=== PATIENT | male | born 1945 | race Caucasian/White ===

== ENCOUNTER 2016-11-06 20:44 | Emergency (ER) | payer OTHER ==
[~2016-11-06] VITALS: Ht 172.7 cm; Wt 93.1 kg
[~2016-11-06 20:44] MED LIST: ATORVASTATIN CA40 MG PO; BACTRIM,SEPT1 TABLET PO; CIPRO500 MG PO; CIPROFLOXACIN H10 ML RIGHT EYE; CITALOPRAM HBR40 MG PO; COLACE100 MG PO; DIABETA,MICRONAS5 MG PO; FLEXERIL10 MG PO; GABAPENTIN300 MG PO; GLUCOPHAGE850 MG PO; HYDROCHLOROTHIA25 MG PO; HYDROCHLOROTHIA50 MG PO; IBUPROFEN400 MG PO; KEFLEX500 MG PO; LANTUS 10100 UNITS/ SC; LANTUS 3 M100 UNITS1 SC; LEVEMIR FL100 UNIT/1 SC; LIPITOR20 MG PO; LISINOPRIL10 MG PO; LISINOPRIL40 MG PO; LORTAB 5-325 M1 EACH PO; MEDROL DOSEPAK4 MG PO; METFORMIN HCL500 MG PO; MOBIC15 MG PO; MOBIC7.5 MG PO; MOTRIN800 MG PO; NAPROSYN500 MG PO; NAPROXEN500 MG PO; NEURONTIN300 MG PO; NO HOME MEDS; NORCO 5/3251 TABLET PO; NORVASC10 MG PO; PERCOCET 10/1 TABLET PO; PERCOCET 5/31 TABLET PO; POLYTRIM EYE DR10 ML RIGHT EYE; PREDNISONE10 MG PO; PREDNISONE50 MG PO; PROAIR HFA8.5 GM IH; PROVENTIL HFA6.7 GM IH; SIMVASTATIN10 MG PO; SKELAXIN800 MG PO; TRAMADOL HCL50 MG PO; TYLENOL ARTHRI650 MG PO; VENTOLIN HFA18 GM IH; ZITHROMAX Z-PA250 MG PO; ZOFRAN4 MG PO; ZYPREXA5 MG PO
[2016-11-06 21:12] LABS: POINT-OF-CARE METER ID UU13113778
[2016-11-06 21:21] LABS: HEMATOCRIT 35.5 % (38.0-50.0); MCH 31.8 PG (29.0-34.0); MCHC 35.8 G/DL (30.0-36.0); RBC DIS.WIDTH-SD 42.5 % (39-53); RED BLOOD COUNT 3.99 M/uL (4.00-5.50); WHITE BLOOD COUNT 6.1 K/uL (4.1-10.2)
[2016-11-06] MEDS ORDERED: COLACE CLEAR50 MG PO (21:36)
[2016-11-06] MEDS ORDERED: ATORVASTATIN CA40 MG PO (21:37)
[2016-11-06 21:38] LABS: GLUCOSE 341 mg/dL (70-99)
[2016-11-06] MEDS ORDERED: METFORMIN HCL500 MG PO (21:38)
[2016-11-06 21:39] LABS: ANION GAP 10 MEQ/L (2-14)
[2016-11-06] MEDS ORDERED: VITAMIN D400 UNIT PO (21:39)
[2016-11-06] MEDS ORDERED: PROVENTIL HFA6.7 GM IH (21:39)
[2016-11-06 21:40] LABS: TOTAL BILIRUBIN 1.4 mg/dL (0.0-1.0)
[2016-11-06] MEDS ORDERED: SPIRIVA RESPIMAT4 GM IH (21:40)
[2016-11-06 21:41] LABS: ALKALINE PHOSPHATASE 92 IU/L (3-129); GFR ESTIMATE (CALCULATED) > 59 mL/min/
[2016-11-06] MEDS ORDERED: LEVEMIR100 UNIT/2 SQ (21:41)
[2016-11-06 21:42] LABS: UREA NITROGEN (BUN) 22 mg/dL (9-23)
[2016-11-06 21:58] LABS: CHLORIDE 106 mEq/L (99-109); POTASSIUM 3.2 mEq/L (3.7-5.4); SODIUM 141 mEq/L (136-147)
[2016-11-06 22:24] LABS: ADD MIUA? YES; BILIRUBIN NEGATIVE; BLOOD NEGATIVE; COLOR YELLOW ((YELLOW)); GLUCOSE (STRIP) >=500; KETONES NEGATIVE; LEUKOCYTES LARGE; NITRITE NEGATIVE; PROTEIN (STRIP) 30; SPECIFIC GRAVITY 1.017 (1.000-1.030)
[2016-11-06 22:25] LABS: HEMATOLOGY COMMENT 1 SN; IMM.PLATELET FRACTION 21.8 (1-7); MEAN PLAT.VOLUME 13.7 uM^3 (9.0-12.4); PLAT.SUFFICIENCY DECREASED; PLATELET COUNT 34 K/uL (156-360)
[2016-11-06 22:47] LABS: CASTS PRESENT /LPF
[2016-11-06 22:48] LABS: BACTERIA 1+ /HPF; CRYSTALS NONE SEEN; EPITHELIAL CELLS RARE /HPF; MUCUS NONE SEEN /LPF; RED BLOOD CELLS 0-5 /HPF (0-5); UCUL ADDED? NO; WHITE BLOOD CELLS 40-50 /HPF (0-5)
[2016-11-07 00:17] LABS: TROP-I INTERPRETATION NEGATIVE; TROPONIN-I < 0.01 ng/mL (0.0-0.30)
[2016-11-07] MEDS ORDERED: KEFLEX500 MG PO (00:52)
[2016-11-07] MEDS ORDERED: ULTRAM50 MG PO (00:54)
[2016-11-07 01:09] VITALS: BP 149/72
== END 2016-11-07 01:25 | disposition home or self-care (01) ==
LOC: EME 20:44
DX: N39.0 Urinary tract infection, site not specified (principal); E11.65 Type 2 diabetes mellitus with hyperglycemia; D69.6 Thrombocytopenia, unspecified; E87.6 Hypokalemia; M25.562 Pain in left knee; G89.29 Other chronic pain; I10 Essential (primary) hypertension; R05 Cough; J44.9 Chronic obstructive pulmonary disease, unspecified; E78.5 Hyperlipidemia, unspecified; I45.10 Unspecified right bundle-branch block; Z79.4 Long term (current) use of insulin; Z87.891 Personal history of nicotine dependence
CPT/HCPCS: 71020; 80053; 81003; 82948; 84484; 85027; 87086; 93005; 99281; 99285; J0696; J1885; J7030; J7050

== ENCOUNTER 2017-01-10 07:02 | Emergency (ER) | payer OTHER ==
[~2017-01-10] VITALS: Ht 175.3 cm; Wt 98.0 kg
[~2017-01-10 07:02] MED LIST changes: +COLACE CLEAR50 MG PO; +LEVEMIR100 UNIT/2 SQ; +SPIRIVA RESPIMAT4 GM IH; +ULTRAM50 MG PO; +VITAMIN D400 UNIT PO
[2017-01-10 08:04] LABS: BASOPHIL COUNT 0.1 K/uL (0-0.1); EOSINOPHIL (%) 0.5 % (0-5); HEMATOCRIT 31.7 % (38.0-50.0); IMMATURE GRANULOCYTE (%) 0.2 % (0.0-0.7); INSTRUMENT ABS NEUTROPHIL CT 6.9 K/uL; LYMPHOCYTE COUNT 0.9 K/uL (1.0-2.8); MCV 91.4 FL (86-99); MONOCYTE (%) 7.3 % (3-12); MONOCYTE COUNT 0.6 K/uL (0-0.8); NEUTROPHIL (%) 80.5 % (45-76); NEUTROPHIL COUNT 6.9 K/uL (1.8-6.4); RBC DIS.WIDTH-CV 13.2 % (11.8-14.6); RBC DIS.WIDTH-SD 43.4 % (39-53); RED BLOOD COUNT 3.47 M/uL (4.00-5.50); WHITE BLOOD COUNT 8.5 K/uL (4.1-10.2)
[2017-01-10 08:20] LABS: ADD MIUA? YES; BILIRUBIN NEGATIVE; BLOOD SMALL; COLOR YELLOW ((YELLOW)); GLUCOSE (STRIP) 150; KETONES NEGATIVE; LEUKOCYTES MODERATE; NITRITE NEGATIVE; PROTEIN (STRIP) 100; SPECIFIC GRAVITY 1.016 (1.000-1.030)
[2017-01-10 08:30] LABS: BACTERIA RARE /HPF; EPITHELIAL CELLS RARE /HPF; MUCUS TRACE /LPF; RED BLOOD CELLS 0-5 /HPF (0-5); UCUL ADDED? NO; WHITE BLOOD CELLS 20-30 /HPF (0-5)
[2017-01-10 08:43] LABS: ANION GAP 8 MEQ/L (2-14); CHLORIDE 111 MEQ/L (99-109); GFR ESTIMATE (CALCULATED) > 59 mL/min/; GLUCOSE 258 mg/dL (70-99); POTASSIUM 3.5 MEQ/L (3.7-5.4); SAMPLE HEMOLYSIS CHECK 0; SAMPLE ICTERIC CHECK 0; SAMPLE LIPEMIA CHECK 0; SODIUM 139 MEQ/L (136-147); UREA NITROGEN (BUN) 16 mg/dL (9-23)
[2017-01-10 08:45] LABS: HEMATOLOGY COMMENT 1 SMEAR COMPATIBLE; IMM.PLATELET FRACTION 12.3 (1-7); MEAN PLAT.VOLUME 12.5 uM^3 (9.0-12.4); PLAT.SUFFICIENCY DECREASED; PLATELET COUNT 46 K/uL (156-360)
[2017-01-10] MEDS ORDERED: BACTRIM,SEPT1 TABLET PO (11:05)
[2017-01-10] MEDS ORDERED: PERCOCET 5/31 TABLET PO (11:08)
[2017-01-10 13:05] VITALS: BP 128/53
== END 2017-01-10 13:07 | disposition home or self-care (01) ==
LOC: EME → EDBD 07:02 → EME 07:02
PROVIDERS: Emergency Medicine
DX: N39.0 Urinary tract infection, site not specified (principal); N45.1 Epididymitis; N43.3 Hydrocele, unspecified; I10 Essential (primary) hypertension; E11.9 Type 2 diabetes mellitus without complications; Z79.4 Long term (current) use of insulin; E78.5 Hyperlipidemia, unspecified; J44.9 Chronic obstructive pulmonary disease, unspecified; I25.2 Old myocardial infarction; F32.9 Major depressive disorder, single episode, unspecified; Z87.891 Personal history of nicotine dependence; Z88.0 Allergy status to penicillin; Z85.830 Personal history of malignant neoplasm of bone
CPT/HCPCS: 76870; 80048; 81003; 85025; 99281; 99285; J0696; J7050

== ENCOUNTER 2017-01-11 03:09 | Emergency (ER) | payer OTHER ==
[~2017-01-11] VITALS: Ht 172.7 cm; Wt 94.5 kg
[2017-01-11 04:43] VITALS: BP 152/74
== END 2017-01-11 04:44 | disposition home or self-care (01) ==
LOC: EME 03:09
DX: N45.1 Epididymitis (principal); I10 Essential (primary) hypertension; E78.5 Hyperlipidemia, unspecified; J44.9 Chronic obstructive pulmonary disease, unspecified; E11.9 Type 2 diabetes mellitus without complications; I25.2 Old myocardial infarction; Z79.4 Long term (current) use of insulin; Z79.84 Long term (current) use of oral hypoglycemic drugs; Z79.899 Other long term (current) drug therapy; Z87.891 Personal history of nicotine dependence
CPT/HCPCS: 99281; 99284; J2270

== ENCOUNTER 2017-01-24 04:00 | Emergency (ER) | payer OTHER ==
[~2017-01-24] VITALS: Ht 172.7 cm; Wt 94.1 kg
[2017-01-24 04:47] LABS: ADD MIUA? YES; BILIRUBIN NEGATIVE; BLOOD NEGATIVE; COLOR YELLOW ((YELLOW)); GLUCOSE (STRIP) NEGATIVE; KETONES NEGATIVE; LEUKOCYTES LARGE; NITRITE NEGATIVE; PROTEIN (STRIP) 100; SPECIFIC GRAVITY 1.017 (1.000-1.030); UROBILINOGEN 0.2 MG/DL (0.2-1.0)
[2017-01-24 04:53] LABS: HEMATOCRIT 30.1 % (38.0-50.0); MCH 31.2 PG (29.0-34.0); MCHC 33.6 G/DL (30.0-36.0); MCV 92.9 FL (86-99); MEAN PLAT.VOLUME 12.3 uM^3 (9.0-12.4); PLATELET COUNT 55 K/uL (156-360); RBC DIS.WIDTH-CV 13.2 % (11.8-14.6); RBC DIS.WIDTH-SD 44.6 % (39-53); RED BLOOD COUNT 3.24 M/uL (4.00-5.50); WHITE BLOOD COUNT 4.9 K/uL (4.1-10.2)
[2017-01-24 05:03] LABS: BACTERIA NONE SEEN /HPF; EPITHELIAL CELLS RARE /HPF; HYALINE CASTS 0-5 /LPF; MUCUS NONE SEEN /LPF; UCUL ADDED? YES; WHITE BLOOD CELLS TNTC /HPF (0-5)
[2017-01-24 05:10] LABS: CHLORIDE 110 mEq/L (99-109); POTASSIUM 3.1 mEq/L (3.7-5.4); SODIUM 142 mEq/L (136-147)
[2017-01-24 05:12] LABS: GLUCOSE 154 mg/dL (70-99)
[2017-01-24 05:14] LABS: ANION GAP 9 MEQ/L (2-14)
[2017-01-24 05:16] LABS: ALKALINE PHOSPHATASE 107 IU/L (3-129); GFR ESTIMATE (CALCULATED) > 59 mL/min/
[2017-01-24 05:17] LABS: UREA NITROGEN (BUN) 13 mg/dL (9-23)
[2017-01-24 05:19] LABS: LIPASE 12 U/L (1.0-51.0)
[2017-01-24] MEDS ORDERED: VANTIN100 MG PO (06:40)
[2017-01-24] MEDS ORDERED: NORCO 5/3251 TABLET PO (06:40)
[2017-01-24 07:48] VITALS: BP 166/76
== END 2017-01-24 07:49 | disposition home or self-care (01) ==
LOC: EME → EDBD 04:00 → EME 07:49
PROVIDERS: Emergency Medicine
DX: N30.90 Cystitis, unspecified without hematuria (principal); G89.18 Other acute postprocedural pain; E87.6 Hypokalemia; D64.9 Anemia, unspecified; I25.2 Old myocardial infarction; E11.9 Type 2 diabetes mellitus without complications; Z79.84 Long term (current) use of oral hypoglycemic drugs; E78.5 Hyperlipidemia, unspecified; I10 Essential (primary) hypertension; J44.9 Chronic obstructive pulmonary disease, unspecified; Z88.0 Allergy status to penicillin; Z87.891 Personal history of nicotine dependence; Z88.6 Allergy status to analgesic agent
CPT/HCPCS: 74177; 80053; 81003; 83690; 85027; 87040; 87086; 99281; 99285; J0696; J2270; J2405; J3480; J7030; J7050

== ENCOUNTER 2017-01-31 14:53 | Observation (INO) | payer OTHER ==
[~2017-01-31] VITALS: Ht 172.7 cm; Wt 90.0 kg
[~2017-01-31 14:53] MED LIST changes: +ATORVASTATIN CA80 MG PO; +OPTIMAL D350000 UNIT PO; -SPIRIVA RESPIMAT4 GM IH; +SPIRIVA18 MCG IH; +VANTIN100 MG PO; -VITAMIN D400 UNIT PO
[2017-01-31 16:04] LABS: HEMATOCRIT 32.1 % (38.0-50.0); MCH 30.9 PG (29.0-34.0); MCHC 33.6 G/DL (30.0-36.0); RBC DIS.WIDTH-CV 13.5 % (11.8-14.6); RBC DIS.WIDTH-SD 45.2 % (39-53); RED BLOOD COUNT 3.49 M/uL (4.00-5.50); WHITE BLOOD COUNT 3.2 K/uL (4.1-10.2)
[2017-01-31 16:11] LABS: CHLORIDE 108 mEq/L (99-109); POTASSIUM 3.5 mEq/L (3.7-5.4); SODIUM 140 mEq/L (136-147)
[2017-01-31 16:13] LABS: GLUCOSE 280 mg/dL (70-99)
[2017-01-31 16:14] LABS: ANION GAP 12 MEQ/L (2-14)
[2017-01-31 16:17] LABS: GFR ESTIMATE (CALCULATED) > 59 mL/min/; UREA NITROGEN (BUN) 11 mg/dL (9-23)
[2017-01-31 16:22] LABS: TROP-I INTERPRETATION NEGATIVE; TROPONIN-I < 0.01 ng/mL (0.0-0.30)
[2017-01-31 16:40] LABS: IMM.PLATELET FRACTION 14.4 (1-7); PLATELET COUNT 39 K/uL (156-360)
[2017-01-31] MEDS ORDERED: NON-ASPIRIN EX500 M2 PO (19:28)
[2017-01-31] MEDS ORDERED: PROVENTIL,2.5 MG/3 M IH (19:29)
[2017-01-31] MEDS ORDERED: DULCOLAX5 MG PO (19:31)
[2017-01-31] MEDS ORDERED: CIPRO500 MG PO (19:32)
[2017-01-31] MEDS ORDERED: DOCUSATE SODIU1 EAC1 PO (19:33)
[2017-01-31] MEDS ORDERED: ZESTRIL30 MG PO (19:34)
[2017-01-31] MEDS ORDERED: MOTRIN800 MG PO (19:34)
[2017-01-31] MEDS ORDERED: LEVEMIR FL100 UNIT/1 SC (19:34)
[2017-01-31] MEDS ORDERED: METHOCARBAMOL750 MG PO (19:35)
[2017-01-31] MEDS ORDERED: K-DUR20 MEQ PO (19:35)
[2017-01-31] MEDS ORDERED: FLOMAX0.4 MG PO (19:35)
[2017-01-31] MEDS ORDERED: NORVASC2.5 MG PO (19:37)
[2017-01-31] MEDS ORDERED: ROXICODONE5 MG PO (19:38)
[2017-01-31] MEDS ORDERED: TRAMADOL HCL50 MG PO (19:39)
[2017-01-31 21:27] VITALS: BP 176/84
[2017-01-31 21:48] LABS: POINT-OF-CARE METER ID UU13113831
[2017-01-31 21:50] LABS: MCH 30.8 PG (29.0-34.0); MCHC 33.5 G/DL (30.0-36.0); MCV 91.7 FL (86-99); RBC DIS.WIDTH-CV 13.4 % (11.8-14.6); RBC DIS.WIDTH-SD 44.6 % (39-53); RED BLOOD COUNT 3.38 M/uL (4.00-5.50)
[2017-01-31 21:59] LABS: INTER. NORMALIZED RATIO 1.3; PROTHROMBIN TIME 13.9 SEC (10.2-12.9)
[2017-01-31 22:07] LABS: PTT 33.6 SEC (25-37)
[2017-01-31 22:13] LABS: ALKALINE PHOSPHATASE 86 IU/L (3-129); ANION GAP 7 MEQ/L (2-14); CHLORIDE 108 MEQ/L (99-109); GFR ESTIMATE (CALCULATED) > 59 mL/min/; GLUCOSE 248 mg/dL (70-99); LACTATE DEHYDROGENASE 152 IU/L (20-246); POTASSIUM 3.7 MEQ/L (3.7-5.4); SAMPLE HEMOLYSIS CHECK 0; SAMPLE ICTERIC CHECK 0; SAMPLE LIPEMIA CHECK 0; SODIUM 140 MEQ/L (136-147); TOTAL BILIRUBIN 1.2 MG/DL (0.0-1.0); UREA NITROGEN (BUN) 10 mg/dL (9-23)
[2017-01-31 22:14] LABS: TROP-I INTERPRETATION NEGATIVE; TROPONIN-I < 0.01 ng/mL (0.0-0.30)
[2017-01-31 22:18] LABS: MEAN PLAT.VOLUME 13.5 uM^3 (9.0-12.4); PLATELET COUNT 38 K/uL (156-360)
[2017-01-31 22:23] LABS: DIRECT BILIRUBIN 0.3 mg/dL (0.0-0.3)
[2017-02-01] VITALS: BP 158/82
[2017-02-01 04:47] LABS: HEMATOCRIT 32.4 % (38.0-50.0); MCH 31.2 PG (29.0-34.0); MCV 91.8 FL (86-99); RBC DIS.WIDTH-CV 13.5 % (11.8-14.6); RBC DIS.WIDTH-SD 45.4 % (39-53); RED BLOOD COUNT 3.53 M/uL (4.00-5.50)
[2017-02-01 05:02] LABS: CHLORIDE 112 mEq/L (99-109); POTASSIUM 3.8 mEq/L (3.7-5.4); SODIUM 146 mEq/L (136-147)
[2017-02-01 05:05] LABS: ANION GAP 9 MEQ/L (2-14)
[2017-02-01 05:06] LABS: TOTAL BILIRUBIN 1.3 mg/dL (0.0-1.0)
[2017-02-01 05:07] LABS: ALKALINE PHOSPHATASE 104 IU/L (3-129)
[2017-02-01 05:08] LABS: GFR ESTIMATE (CALCULATED) > 59 mL/min/
[2017-02-01 05:09] LABS: UREA NITROGEN (BUN) 11 mg/dL (9-23)
[2017-02-01 05:11] LABS: TROP-I INTERPRETATION NEGATIVE; TROPONIN-I < 0.01 ng/mL (0.0-0.30)
[2017-02-01 05:23] LABS: GLUCOSE 71 mg/dL (70-99)
[2017-02-01 05:51] LABS: IMM.PLATELET FRACTION 15.6 (1-7); MEAN PLAT.VOLUME 13.1 uM^3 (9.0-12.4); PLAT.SUFFICIENCY DECREASED; PLATELET COUNT 43 K/uL (156-360)
[2017-02-01 07:16] LABS: Estimated Average Glucose 157 mg/dL (70-123); HEMOGLOBIN A1c (GLYCOHEMOGLOB) 7.1 % HGB (Below 5.7)
[2017-02-01 08:15] VITALS: BP 135/68
[2017-02-01 08:20] LABS: POINT-OF-CARE METER ID UU13113831
[2017-02-01 10:48] LABS: ABS NEUTROPHIL COUNT 1.8; ATYPICAL LYMPHOCYTE 4.4 %; EOSINOPHIL ABS CT 0; EOSINOPHILS 0.9 % (0-5.0); INSTRUMENT ABS NEUTROPHIL CT 1.5 K/uL; POIKILOCYTOSIS 1+; SEG.NEUTROPHILS 59.1 % (46.0-76.0); SMEAR EVALUATION YES
[2017-02-01 11:12] LABS: PLAT.SUFFICIENCY VERY DECREASED
[2017-02-01 11:34] VITALS: BP 158/65
[2017-02-01 11:49] LABS: POINT-OF-CARE METER ID UU13113831
== END 2017-02-01 14:18 | disposition home or self-care (01) ==
LOC: EME 14:53 → EDOF 20:12 → 5WEST 20:12 → EDOF 20:12 → ENRESERV 20:13 → 5WEST 21:04
PROVIDERS: Emergency Medicine; Internal Medicine
DX: R06.00 Dyspnea, unspecified (principal); D61.818 Other pancytopenia; I10 Essential (primary) hypertension; E11.319 Type 2 diabetes mellitus with unspecified diabetic retinopathy without macular edema; E78.5 Hyperlipidemia, unspecified; E87.6 Hypokalemia; J44.9 Chronic obstructive pulmonary disease, unspecified; N41.2 Abscess of prostate; N40.0 Benign prostatic hyperplasia without lower urinary tract symptoms; F32.9 Major depressive disorder, single episode, unspecified; I25.10 Atherosclerotic heart disease of native coronary artery without angina pectoris; F43.10 Post-traumatic stress disorder, unspecified; R91.8 Other nonspecific abnormal finding of lung field; I25.2 Old myocardial infarction; Z87.891 Personal history of nicotine dependence; F10.21 Alcohol dependence, in remission; Z79.891 Long term (current) use of opiate analgesic; Z79.4 Long term (current) use of insulin; Z82.49 Family history of ischemic heart disease and other diseases of the circulatory system
CPT/HCPCS: 71010; 71275; 76705; 80048; 80053; 82248; 82607; 82948; 83036; 83615; 84484; 84550; 85007; 85025; 85027; 85060; 85379; 85610; 85730; 93005; 94640; 99202; 99281; 99285; G0378; J1815

== ENCOUNTER 2017-02-02 10:50 | Emergency (ER) | payer OTHER ==
[~2017-02-02] VITALS: Ht 172.7 cm; Wt 89.3 kg
[~2017-02-02 10:50] MED LIST changes: +DOCUSATE SODIU1 EAC1 PO; +DULCOLAX5 MG PO; +FLOMAX0.4 MG PO; +K-DUR20 MEQ PO; +METHOCARBAMOL750 MG PO; +NON-ASPIRIN EX500 M2 PO; +NORVASC2.5 MG PO; +PROVENTIL,2.5 MG/3 M IH; +ROXICODONE5 MG PO; +ZESTRIL30 MG PO
[2017-02-02 13:12] LABS: HEMATOCRIT 30.4 % (38.0-50.0); MCH 30.9 PG (29.0-34.0); MCHC 33.6 G/DL (30.0-36.0); MCV 92.1 FL (86-99); RBC DIS.WIDTH-CV 13.7 % (11.8-14.6); RBC DIS.WIDTH-SD 46.3 % (39-53); WHITE BLOOD COUNT 3.4 K/uL (4.1-10.2)
[2017-02-02 13:21] LABS: CHLORIDE 112 mEq/L (99-109); POTASSIUM 3.6 mEq/L (3.7-5.4); SODIUM 142 mEq/L (136-147)
[2017-02-02 13:23] LABS: GLUCOSE 243 mg/dL (70-99)
[2017-02-02 13:24] LABS: ANION GAP 7 MEQ/L (2-14)
[2017-02-02 13:27] LABS: GFR ESTIMATE (CALCULATED) > 59 mL/min/
[2017-02-02 13:28] LABS: UREA NITROGEN (BUN) 12 mg/dL (9-23)
[2017-02-02 13:59] LABS: IMM.PLATELET FRACTION 16.3 (1-7); MEAN PLAT.VOLUME 13.7 uM^3 (9.0-12.4); PLATELET COUNT 36 K/uL (156-360)
[2017-02-02 15:01] VITALS: BP 159/76
== END 2017-02-02 15:01 | disposition home or self-care (01) ==
LOC: EME 10:50
PROVIDERS: Emergency Medicine
DX: Z48.01 Encounter for change or removal of surgical wound dressing (principal); D69.6 Thrombocytopenia, unspecified; I10 Essential (primary) hypertension; E11.9 Type 2 diabetes mellitus without complications; Z79.4 Long term (current) use of insulin; E78.5 Hyperlipidemia, unspecified; J44.9 Chronic obstructive pulmonary disease, unspecified; I25.2 Old myocardial infarction; F32.9 Major depressive disorder, single episode, unspecified; H54.8 Legal blindness, as defined in USA; Z87.891 Personal history of nicotine dependence; Z88.0 Allergy status to penicillin
CPT/HCPCS: 80048; 85027; 99281; 99284

== ENCOUNTER 2017-05-05 10:17 | Emergency (ER) | payer OTHER ==
[~2017-05-05] VITALS: Ht 170.2 cm; Wt 92.3 kg
[2017-05-05 11:06] LABS: BASOPHIL COUNT 0.1 K/uL (0-0.1); EOSINOPHIL (%) 1.2 % (0-5); EOSINOPHIL COUNT 0.1 K/uL (0-0.3); HEMATOCRIT 33.2 % (38.0-50.0); IMMATURE GRANULOCYTE (%) 0.2 % (0.0-0.7); INSTRUMENT ABS NEUTROPHIL CT 2.3 K/uL; LYMPHOCYTE COUNT 1.4 K/uL (1.0-2.8); MCH 31.2 PG (29.0-34.0); MCHC 34.6 G/DL (30.0-36.0); MONOCYTE (%) 7.6 % (3-12); MONOCYTE COUNT 0.3 K/uL (0-0.8); NEUTROPHIL (%) 56.1 % (45-76); NEUTROPHIL COUNT 2.3 K/uL (1.8-6.4); RBC DIS.WIDTH-CV 13.3 % (11.8-14.6); RBC DIS.WIDTH-SD 44.3 % (39-53); RED BLOOD COUNT 3.69 M/uL (4.00-5.50); WHITE BLOOD COUNT 4.1 K/uL (4.1-10.2)
[2017-05-05 11:16] LABS: CHLORIDE 112 mEq/L (99-109); POTASSIUM 3.4 mEq/L (3.7-5.4); SODIUM 140 mEq/L (136-147)
[2017-05-05 11:17] LABS: GLUCOSE 164 mg/dL (70-99)
[2017-05-05 11:19] LABS: ANION GAP 9 MEQ/L (2-14)
[2017-05-05 11:21] LABS: GFR ESTIMATE (CALCULATED) > 59 mL/min/
[2017-05-05 11:22] LABS: UREA NITROGEN (BUN) 15 mg/dL (9-23)
[2017-05-05 11:42] LABS: IMM.PLATELET FRACTION 20.9 (1-7); MEAN PLAT.VOLUME 13.6 uM^3 (9.0-12.4); PLAT.SUFFICIENCY VERY DECREASED; PLATELET COUNT 31 K/uL (156-360)
[2017-05-05 12:06] VITALS: BP 144/70
== END 2017-05-05 12:07 | disposition home or self-care (01) ==
LOC: EME 10:17
PROVIDERS: Emergency Medicine
DX: I10 Essential (primary) hypertension (principal); R51 Headache; E78.5 Hyperlipidemia, unspecified; J44.9 Chronic obstructive pulmonary disease, unspecified; E11.9 Type 2 diabetes mellitus without complications; Z79.4 Long term (current) use of insulin; Z87.891 Personal history of nicotine dependence
CPT/HCPCS: 80048; 85025; 99281; 99285

== ENCOUNTER 2017-05-31 14:41 | Emergency (ER) | payer OTHER ==
[~2017-05-31] VITALS: Ht 172.7 cm; Wt 92.7 kg
[2017-05-31 15:41] LABS: EOSINOPHIL (%) 1.2 % (0-5); HEMATOCRIT 31.8 % (38.0-50.0); IMMATURE GRANULOCYTE (%) 0.3 % (0.0-0.7); MCHC 34.9 G/DL (30.0-36.0); MCV 91.6 FL (86-99); MONOCYTE (%) 8.1 % (3-12); MONOCYTE COUNT 0.3 K/uL (0-0.8); NEUTROPHIL (%) 59.5 % (45-76); RBC DIS.WIDTH-CV 13.7 % (11.8-14.6); RBC DIS.WIDTH-SD 46.1 % (39-53); RED BLOOD COUNT 3.47 M/uL (4.00-5.50); WHITE BLOOD COUNT 3.3 K/uL (4.1-10.2)
[2017-05-31 15:49] LABS: CHLORIDE 111 mEq/L (99-109); POTASSIUM 4.2 mEq/L (3.7-5.4); SODIUM 141 mEq/L (136-147)
[2017-05-31 15:50] LABS: MAGNESIUM 1.6 mg/dL (1.3-2.7)
[2017-05-31 15:51] LABS: GLUCOSE 347 mg/dL (70-99)
[2017-05-31 15:52] LABS: ANION GAP 9 MEQ/L (2-14)
[2017-05-31 15:53] LABS: TOTAL BILIRUBIN 1.4 mg/dL (0.0-1.0)
[2017-05-31 15:55] LABS: ALKALINE PHOSPHATASE 118 IU/L (3-129); GFR ESTIMATE (CALCULATED) > 59 mL/min/ (58.99-99999)
[2017-05-31 15:56] LABS: UREA NITROGEN (BUN) 17 mg/dL (9-23)
[2017-05-31 15:58] LABS: CREATINE KINASE 74 IU/L (1-294); TOTAL CK 74 IU/L (1-294)
[2017-05-31 16:05] LABS: TROP-I INTERPRETATION NEGATIVE; TROPONIN-I < 0.01 ng/mL (0.0-0.30)
[2017-05-31 16:07] LABS: CK-MB 1.5 ng/mL (0.0-4.9)
[2017-05-31 16:22] LABS: IMM.PLATELET FRACTION 15.9 (1-7); MEAN PLAT.VOLUME 14.1 uM^3 (9.0-12.4); PLAT.SUFFICIENCY VERY DECREASED
[2017-05-31 16:23] LABS: PLATELET COUNT 27 K/uL (156-360)
[2017-05-31 17:11] LABS: POINT-OF-CARE METER ID UU14100415
[2017-05-31] MEDS ORDERED: VENTOLIN HFA18 GM IH (17:53)
[2017-05-31 18:33] VITALS: BP 157/73
== END 2017-05-31 18:33 | disposition home or self-care (01) ==
LOC: EME 14:41
PROVIDERS: Emergency Medicine
DX: J44.1 Chronic obstructive pulmonary disease with (acute) exacerbation (principal); E11.65 Type 2 diabetes mellitus with hyperglycemia; D69.6 Thrombocytopenia, unspecified; I10 Essential (primary) hypertension; E78.5 Hyperlipidemia, unspecified; Z79.4 Long term (current) use of insulin; Z87.891 Personal history of nicotine dependence
CPT/HCPCS: 71020; 80053; 82550; 82553; 82948; 83735; 83880; 84484; 85025; 93005; 94640; J7030